=== PATIENT | male | born 1950 | race African-American/Black ===

== ENCOUNTER 2018-01-09 18:45 | Emergency (ER) | payer OTHER ==
[~2018-01-09] VITALS: Ht 162.6 cm; Wt 78.9 kg
--- NOTE | 2018-01-09 20:01 | ED ANKLE/FOOT INJURY COMPLAINT ---
History of Present Illness General Chief Complaint: Foot or Ankle Injury Stated Complaint: R FOOT PAIN Source: patient, family Exam Limitations: no limitations Vital Signs & Intake/Output Vital Signs & Intake/Output Vital Signs Date Time Temp Pulse Resp B/P B/P Pulse O2 O2 Flow FiO2 Mean Ox Delivery Rate 01/09 2102 98.7 78 18 133/63 99 Room Air 01/09 2014 Room Air 01/09 1850 98.6 91 18 145/73 94 Room Air ED Intake and Output 01/10 0000 01/09 1200 Intake Total Output Total Balance Patient 174 lb Weight Weight Reported by Patient Measurement Method Allergies Coded Allergies: No Known Allergies (01/09/18) Reconcile Medications Ibuprofen 800 MG TABLET 1 TAB PO TID gout Triage Note: PT STATES HIS RIGHT FOOT BEGAN TO SWELL 2 DAYS AGO AND HE DOES NOT REMEBER ANY INJURY. Triage Nurses Notes Reviewed? yes Duration: day(s): Timing: recent history Severity: moderate Pain/Injury Location: Right: Foot, 1st toe. Method of Injury: unknown HPI: 67-year-old man with history of gout, diabetes presents to emergency department complaining of pain and swelling to right foot worsening for the past 3 days. There was no trauma or inciting event prior to onset of symptoms. Patient states pain is located in great toe and radiates towards foot. Pain described as severe, 10/10. Patient denies fevers, chills, numbness, skin wound, bleeding. (Sudha Kearns) Past History Travel History Traveled to [place] past 21 day No Medical History Any Pertinent Medical History? see below for history Endocrine: diabetes Surgical History Surgical History: non-contributory Psychosocial History What is your primary language Swedish Tobacco Use: Never used ETOH Use: denies use Illicit Drug Use: denies illicit drug use Family History Hx Contributory? No (Sudha Kearns) Review of Systems Review of Systems Constitutional: Reports: no symptoms. EENTM: Reports: no symptoms. Respiratory: Reports: no symptoms. Cardiovascular: Reports: no symptoms. GI: Reports: no symptoms. Genitourinary: Reports: no symptoms. Musculoskeletal: Reports: see HPI. Skin: Reports: no symptoms. Neurological/Psychological: Reports: no symptoms. Hematologic/Endocrine: Reports: no symptoms. Immunologic/Allergic: Reports: no symptoms. All Other Systems: Reviewed and Negative (Sudha Kearns) Physical Exam Physical Exam General Appearance: well developed/nourished, no apparent distress, alert, awake Head: atraumatic, normal appearance Eyes: Bilateral: normal appearance. Ears, Nose, Throat: hearing grossly normal Neck: normal inspection, supple, full range of motion Cardiovascular/Respiratory: no respiratory distress Back: normal inspection, normal range of motion Leg/Knee/Thigh Left: normal range of motion, normal inspection Leg/Knee/Thigh Right: normal range of motion, normal inspection Ankle Left: normal inspection, normal range of motion Ankle Right: normal inspection, normal range of motion Foot Left: normal inspection, normal range of motion Foot Right: swelling to dorsal foot with tenderness and warmth to 1st MCP joint, mild erythema to medial foot Neuro/Vascular: normal motor function, normal sensation Tendon: normal tendon function Psychiatric: awake, alert, oriented x 3 Skin: intact, normal color, warm/dry (Nasreen SCHROEDER,Sudha Moore) Progress Differential Diagnosis: DVT, cellulitis, septic arthritis, gout, fracture, sprain, contusion Plan of Care: Orders Procedure Date/time Status XRY-FOOT COMPLETE, RIGHT 01/09 1959 Active Patient's tenderness is located at MCP joint of great toe. He has a history of gout however is unsure of the location. The patient's son is present who states his father's gout within this location previously. There was no trauma or inciting event or one set of symptoms. There was no skin wound prior to onset of symptoms. X-ray shows no acute findings. Symptoms are most consistent with acute gout flareup. This recent patient was started on NSAID course. Patient was educated on signs and symptoms of cellulitis and when to return to the emergency department. He is in no acute distress, nontoxic appearing. Patient will follow-up with his primary care doctor and reports that he'll be making an appointment with a patient manager. The patient agrees with the plan of care. Diagnostic Imaging: Viewed by Me: Radiology Read. Discussed w/RAD: Radiology Read. Radiology Impression: PATIENT: TAMMI MELARA PRESENT AGE: 67 PATIENT ACCOUNT NO: [id number] : 51 LOCATION: [facility] ORDERING PHYSICIAN: Sudha SCHROEDER SERVICE DATE: 01/09/18-1957 EXAM TYPE: RAD - XRY-FOOT COMPLETE, R EXAMINATION: XR FOOT, RIGHT CLINICAL INFORMATION: Right foot pain. COMPARISON: None TECHNIQUE: AP, lateral, and oblique views of the right foot. FINDINGS: No fracture or dislocation. There are hypertrophic changes in the midfoot, particularly involving the articulation of the navicular and medial cuneiform. Mild hypertrophic changes at the 1st MTP joint. There is sclerosis within the distal 4th metatarsal metadiaphysis which could represent a bone island. IMPRESSION: No acute osseous abnormalities. Non-acute findings as described above. DICTATED BY: Grayson Hairston MD DATE/TIME DICTATED:01/09/182055 LACROSSE COACH:NILA DATE/TIME TRANSCRIBED:01/09/182055 CONFIDENTIAL, DO NOT COPY WITHOUT APPROPRIATE AUTHORIZATION. <Electronically signed in Other Vendor System> SIGNED BY: Grayson Hairston MD 01/09/182107 (Nasreen SCHROEDER,Sudha Moore) Departure Departure Disposition: HOME OR SELF CARE Condition: Stable Clinical Impression Primary Impression: Foot pain Qualifiers: Laterality: right Qualified Code: M79.671 - Pain in right foot Secondary Impressions: Gout Qualifiers: Gout site: toe Gout etiology: unspecified cause Chronicity: acute Laterality: right Qualified Code: M10.9 - Gout, unspecified Referrals: Patient Has No Primary Care Dr (PCP/Family) Additional Instructions: Take ibuprofen 800 mg 3 times a day for the next 7-10 days or until your symptoms have resolved. He may take tylenol 650-1000mg every 6 hours as needed for pain. If he develops any fevers, chills, redness to your leg increasing swelling please return to the emergency department. Otherwise follow-up with your primary care doctor. Please note that there might be incidental findings in your evaluation that are unrelated to the current emergency department visit. Please notify your primary care doctor about this emergency department visit in order to obtain and review all of the testing performed so that these incidental findings can be monitored as needed. If you had an x-ray performed, please understand that some fractures may not be seen on the initial set of x-rays. If your symptoms persist you might need a repeat set of x-rays to check for such a fracture. If you had a laceration evaluated, please understand that foreign bodies such as glass or wood may not be visible to the naked eye or on plain x-rays. If the wound becomes red, swollen, increasingly more painful or if there is any drainage from the wound, please have it reevaluated by a physician for the possibility of a retained foreign body. If you're unable to follow up as outlined in the discharge instructions please return to the emergency department. Thank you for choosing the [facility] Emergency Department for your care. It was a pleasure to serve you today. Departure Forms: Customer Survey General Discharge Information Prescriptions: Current Visit Scripts Ibuprofen 1 TAB PO TID #30 TAB (Nasreen SCHROEDER,Sudha Moore) PA/DOUBLE END TENON OPERATOR Co-Sign Statement Statement: ED Attending supervision documentation- [] I saw and evaluated the patient. I have also reviewed all the pertinent lab results and diagnostic results. I agree with the findings and the plan of care as documented in the PA's/DOUBLE END TENON OPERATOR's documentation. [x] I have reviewed the ED Record and agree with the PA's/DOUBLE END TENON OPERATOR's documentation. [] Additions or exceptions (if any) to the PAs/DOUBLE END TENON OPERATOR's note and plan are summarized below: [] (Orlando RIOS,Yony Taveras)
[2018-01-09 21:02] VITALS: BP 133/63
--- NOTE | 2018-01-09 21:08 | RADIOLOGY REPORT ---
EXAMINATION: XR FOOT, RIGHT CLINICAL INFORMATION: Right foot pain. COMPARISON: None TECHNIQUE: AP, lateral, and oblique views of the right foot. FINDINGS: No fracture or dislocation. There are hypertrophic changes in the midfoot, particularly involving the articulation of the navicular and medial cuneiform. Mild hypertrophic changes at the 1st MTP joint. There is sclerosis within the distal 4th metatarsal metadiaphysis which could represent a bone island. IMPRESSION: No acute osseous abnormalities. Non-acute findings as described above.
[2018-01-09] MEDS ORDERED: IBUPROFEN800 M1 PO (21:35)
== END 2018-01-09 21:44 ==
LOC: ERH 18:45
DX: M79.671 Pain in right foot (principal); M10.9 Gout, unspecified
CPT/HCPCS: 73630-RT